=== PATIENT | female | born 1965 | race Caucasian/White ===

== ENCOUNTER → 2017-04-16 | Outpatient (CLI) | payer OTHER ==
--- NOTE | 2017-04-16 12:06 | RADIOLOGY REPORT (SQ) ---
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 Coronal T2/HASTE imaging. CONTRAST TYPE AND DOSE: 15 mL Multihance. RENAL FUNCTION: GFR > 60. LIMITATIONS: Motion. FINDINGS: Since the most recent prior, there has been no significant change in the appearance of the spinal canal at L4-5 post right micro laminectomy and partial facetectomy. Small fluid collection in the surgical bed at L5-S1 has resolved. Interval decrease in the size of t he disc herniation. There is enhancing granulation tissue but no evidence of recurrent disc protrusi on or extrusion. Cord signal is normal. No evidence of nerve root clumping. IMPRESSION: Expected postsurgical changes with interval decrease in the size of the disc herniation at L5-S1. Resolved fluid collection L4-5. TECHNICAL DOCUMENTATION: JOB ID: [id number] [employer]- All Rights Reserved
== END ==
LOC: RAD 09:59
PROVIDERS: ATTEND Orthopaedic Surgery
DX: M54.16 Radiculopathy, lumbar region (principal)
CPT/HCPCS: 82565; 72158; A9577